=== PATIENT | male | born 1995 | race Caucasian/White ===

== ENCOUNTER 2016-06-29 22:27 | Emergency (ER) | payer OTHER ==
[2016-06-29 22:34] VITALS: RESP 16
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
[2016-06-30] MEDS ORDERED: HYDROCODONE/APAP 5/325 TAB ONE (00:24)
[2016-06-30] MEDS ORDERED: HYDROCODONE/APAP 5/325 TAB PO ONE (00:28)
[2016-06-30 00:53] VITALS: BP 134/77; PULSE 87; TEMP 98.2; O2SAT 94
== END 2016-06-30 00:53 | disposition home or self-care (01) ==
DX: S82.302A Unspecified fracture of lower end of left tibia, initial encounter for closed fracture (principal); F17.200 Nicotine dependence, unspecified, uncomplicated; W08.XXXA Fall from other furniture, initial encounter